=== PATIENT | female | born 1965 ===

== ENCOUNTER 2018-05-13 18:53 | Inpatient (IN) | payer OTHER ==
[~2018-05-13] VITALS: Ht 154.9 cm; Wt 99.8 kg
[2018-05-13] MEDS ORDERED: IV NORMAL SALINE 1000 ML BAG IV ONE (19:00)
[2018-05-13] MEDS ORDERED: [UNRECOGNIZED DRUG - REMARK] (19:04)
[2018-05-13] MEDS ORDERED: [UNRECOGNIZED DRUG - REMARK] (19:04)
[2018-05-13] MEDS ORDERED: [UNRECOGNIZED DRUG - REMARK] (19:04)
[2018-05-13] MEDS ORDERED: [UNRECOGNIZED DRUG - REMARK] (19:04)
[2018-05-13] MEDS ORDERED: [UNRECOGNIZED DRUG - REMARK] (19:04)
--- NOTE | 2018-05-13 19:17 | NUR ---
Pt brought in by rescue ambulance from home with c/o shortness of breath, weakness, and episode of altered mental status witnessed by friend 1 hr prior to arrival per EMS. Pt states she "has not been feeling good all week." Pt is ambulatory, alert oriented x 4. SA02 100% room air.
[2018-05-13 19:53] LABS: BASOPHILS % (AUTO) 0.3 % (0.0-2.0); CREATININE 0.6 mg/dL (0.6-1.3); EOSINOPHILS # (AUTO) 0.2 K/uL (0.0-0.7); HEMATOCRIT 39.3 % (31.2-41.9); HEMOGLOBIN 12.6 g/dL (10.9-14.3); LYMPHOCYTES # (AUTO) 1.7 K/uL (20.0-40.0); LYMPHOCYTES % (AUTO) 20.1 % (20.5-51.5); MEAN CORPUSCULAR HEMOGLOBIN 18.8 uug (24.7-32.8); MEAN CORPUSCULAR HGB CONC 32 g/dL (32.3-35.6); MEAN CORPUSCULAR VOLUME 58.6 fL (75.5-95.3); MONOCYTES # (AUTO) 0.5 K/uL (2.0-10.0); MONOCYTES % (AUTO) 5.4 % (0.0-11.0); NEUTROPHILS # (AUTO) 6.3 K/uL (1.8-8.9); NEUTROPHILS % (AUTO) 72.2 % (38.5-71.5); POTASSIUM 3.7 mmol/L (3.5-5.1); WHITE BLOOD COUNT (AUTO) 8.7 K/uL (3.8-11.8)
[2018-05-13 19:57] LABS: BILIRUBIN,DIRECT 0.1 mg/dL (0.0-0.2); BILIRUBIN,TOTAL 0.4 mg/dL (0.2-1.0); TOTAL PROTEIN, SERUM 7.6 g/dL (6.4-8.2)
--- NOTE | 2018-05-13 20:10 | NUR ---
Paged [facility] for panel call. [facility].
[2018-05-13 20:11] LABS: *BILIRUBIN,URIN NEGATIVE (NEGATIVE); *BLOOD, URINE NEGATIVE (NEGATIVE); *COLOR,URINE YELLOW (YELLOW); *KETONES,URINE NEGATIVE (NEGATIVE); *UROBILINOGEN,URINE 0.2 E.U./dl (NORMAL); LEUKOCYTE ESTERASE ,URINE NEGATIVE (NEGATIVE); NITRITE, URINE NEGATIVE (NEGATIVE); UGLUCOSE NEGATIVE (NEGATIVE)
[2018-05-13 20:13] LABS: *CLARITY,URINE HAZY (CLEAR)
[2018-05-13] MEDS ORDERED: ASPIRIN 81 MG TAB.CHEW ONE (20:13)
[2018-05-13] MEDS ORDERED: ASPIRIN 81 MG TAB.CHEW PO ONE (20:15)
[2018-05-13 20:18] LABS: PLATELET COUNT (AUTO) 169 K/uL (179-408)
[2018-05-13 20:19] LABS: BACTERIA,URINE NONE SEEN /HPF (NONE SEEN); RBC,URINE 0-3 /HPF (0-3); SQUAMOUS EPITHELIAL CELL,UR FEW /HPF (NONE SEEN); WBC,URINE 0-3 /HPF (0-3)
--- NOTE | 2018-05-13 20:44 | NUR ---
Pt. admitted to Telemetry, under care of Dr. Mandujano Diagnosis: TIA vs. Near Syncope Belongs List completed
[2018-05-13 20:55] VITALS: BP 143/61
--- NOTE | 2018-05-13 21:05 | NUR ---
ADMITTED PATIENT IN THE TELE UNIT UNDER THE CARE OF DR. FAJARDO, BELONGING LIST WAS DONE. ALERT ORIENTED, CONTINENT, FAMILY AT BEDSIDE.
[2018-05-13] MEDS ORDERED: MAGNESIUM HYDROXIDE 30 ML LIQUID UDC PO PRN (21:15)
[2018-05-13] MEDS ORDERED: Z GUARD REMEDY PASTE 57 GM TUBE TOP PRN (21:15)
[2018-05-13] MEDS ORDERED: ACETAMINOPHEN 325 MG TABLET PO PRN (21:15)
[2018-05-13] MEDS ORDERED: ONDANSETRON 4 MG/2 ML VIAL IV PRN (21:15)
[2018-05-13] MEDS ORDERED: HYDROCODONE/APAP 5-325MG TABLET PO PRN (21:15)
[2018-05-13] MEDS ORDERED: ZOLPIDEM 5 MG TABLET PO PRN (21:15)
--- NOTE | 2018-05-13 21:58 | NUR ---
PLACE A CALL TO DR. FAJARDO, TO CLARRIFY ORDER OF DRUG PROFILE. NOTIFY MD THAT WE DO URINE DRUG SCREEN IN OUR LAB NOT DRUG PROFILE. DR. FAJARDO OKEYED THE URINE DRUG SCREEN. NOTIFY LABS.
[2018-05-13 22:10] LABS: THYROID STIMULATING HORMONE 1.431 mIU/mL (0.358-3.740)
[2018-05-13 22:28] LABS: *AMPHETAMINE, URINE NEGATIVE (NEGATIVE); *BARBITURATE, URINE NEGATIVE (NEGATIVE); *CANNABINOID, URINE NEGATIVE (NEGATIVE); *COCCAINE, URINE NEGATIVE (NEGATIVE); *OPIATE, URINE NEGATIVE (NEGATIVE); *PHENCYCLIDINE SCREEN,URINE NEGATIVE (NEGATIVE)
[2018-05-14] VITALS: BP 140/54
[2018-05-14] MEDS: BLOOD SUGAR DIAGNOSTIC 1 EACH STRIP VI SCH ×6 (00:09→21:24)
[2018-05-14 04:00] VITALS: BP 126/54
--- NOTE | 2018-05-14 06:06 | NUR ---
PATIENT SLEPT MOST OF THE NIGHT, NO SOB NO CHEST PAIN, TELE MONITOR SINUS RHYTHM 64, PATIENT ALERT ORIENTED, NO ADVERSE CHANGES NOTED. CONT TO MONITOR.
[2018-05-14 06:55] LABS: BASOPHILS % (AUTO) 0.4 % (0.0-2.0); EOSINOPHILS # (AUTO) 0.2 K/uL (0.0-0.7); EOSINOPHILS % (AUTO) 2.9 % (0.0-7.0); HEMATOCRIT 34.9 % (31.2-41.9); HEMOGLOBIN 11.1 g/dL (10.9-14.3); LYMPHOCYTES # (AUTO) 1.6 K/uL (20.0-40.0); LYMPHOCYTES % (AUTO) 23.6 % (20.5-51.5); MEAN CORPUSCULAR HEMOGLOBIN 18.5 uug (24.7-32.8); MEAN CORPUSCULAR HGB CONC 32 g/dL (32.3-35.6); MEAN CORPUSCULAR VOLUME 57.9 fL (75.5-95.3); MONOCYTES # (AUTO) 0.4 K/uL (2.0-10.0); MONOCYTES % (AUTO) 5.9 % (0.0-11.0); NEUTROPHILS # (AUTO) 4.5 K/uL (1.8-8.9); NEUTROPHILS % (AUTO) 67.2 % (38.5-71.5); PLATELET COUNT (AUTO) 164 K/uL (179-408); RED BLOOD CELL COUNT(AUTO) 6.03 MIL/uL (3.63-4.92); WHITE BLOOD COUNT (AUTO) 6.7 K/uL (3.8-11.8)
[2018-05-14 07:14] LABS: CREATININE 0.6 mg/dL (0.6-1.3); MAGNESIUM 1.7 mg/dL (1.8-2.4); PHOSPHOROUS 4.2 mg/dL (2.5-4.9); POTASSIUM 3.7 mmol/L (3.5-5.1)
[2018-05-14] MEDS: ASPIRIN EC 81 MG TABLET.DR PO SCH (08:21)
[2018-05-14] MEDS: AMLODIPINE 5 MG TABLET PO SCH (11:00)
[2018-05-14] MEDS: LISINOPRIL 10 MG TABLET PO SCH ×2 (11:01→21:00)
[2018-05-14] MEDS: METFORMIN HCL 500 MG TABLET PO SCH ×2 (11:04→17:15)
[2018-05-14 11:40] VITALS: BP 135/60
--- NOTE | 2018-05-14 13:45 | NUR ---
PATIENT WENT TO [place] FOR MRI BRAIN AND NECK WITHOUT CONTRAST VIA AMBULANCE
[2018-05-14] MEDS ORDERED: MAGNESIUM OXIDE 400 MG TABLET PO ONE (14:15)
--- NOTE | 2018-05-14 15:00 | NUR ---
BACK FROM MRI STABLE, NO SS OF PAIN OR DISTRESS
[2018-05-14] MEDS ORDERED: CITA20TA19 PO (15:14)
[2018-05-14] MEDS ORDERED: LISI-603 PO (15:15)
[2018-05-14] MEDS ORDERED: METF500S7 PO (15:16)
[2018-05-14] MEDS ORDERED: METF-440 PO (15:18)
[2018-05-14] MEDS ORDERED: AMLO5TAB4 PO (15:19)
[2018-05-14 15:40] VITALS: BP 150/79
--- NOTE | 2018-05-14 17:13 | NUR ---
PATIENT REFUSED SLIDING SCALE FOR BS 146. PATIENT SAID SHE WILL TAKE LATER AT 2100 DOSE. PATIENT ON GLUCOPHAGE PO BID
[2018-05-14 19:24] VITALS: BP 144/71
[2018-05-14] MEDS ORDERED: ATORVASTATIN 40 MG TABLET PO SCH (21:00)
--- NOTE | 2018-05-14 21:15 | NUR ---
Alert, pleasant and cooperative. States feeling much better; anticipates home in AM. Accuchek at HS 144. Pt Diabetic education done. Pt states trying hard to avoid insulin regimen. Expressing determination to do lifestyle changes. Encouraged to verbalize and to feel free to ask questions.
[2018-05-14 23:53] VITALS: BP 131/53
--- NOTE | 2018-05-15 02:00 | NUR ---
Pt has been sleeping. Resp easy and unlabored. Stable sinus rhythm. In no apparent acute distress.
[2018-05-15 03:27] VITALS: BP 151/64
--- NOTE | 2018-05-15 06:50 | NUR ---
Restful night, able to sleep. Pain-free this AM. Hopes to go home. Stable, comfortable night. Spirits good. Pt very appreciative of care provided.
[2018-05-15 06:51] LABS: CREATININE 0.6 mg/dL (0.6-1.3); MAGNESIUM 1.8 mg/dL (1.8-2.4); POTASSIUM 3.9 mmol/L (3.5-5.1)
[2018-05-15] MEDS: BLOOD SUGAR DIAGNOSTIC 1 EACH STRIP VI SCH ×2 (06:53→11:39)
--- NOTE | 2018-05-15 07:15 | NUR ---
IN BED AWAKE ALERT AND ORIENTED X3 NO SS OF PAIN OR DISTRESS SR ON MONITOR. PLAN DC TODAY AWAITING
--- NOTE | 2018-05-15 08:30 | NUR ---
SEEN BY DR LOPEZ WITH DC ORDER
[2018-05-15] MEDS: ASPIRIN EC 81 MG TABLET.DR PO SCH (08:41)
[2018-05-15] MEDS: METFORMIN HCL 500 MG TABLET PO SCH (08:41)
[2018-05-15] MEDS: AMLODIPINE 5 MG TABLET PO SCH (08:44)
[2018-05-15] MEDS: LISINOPRIL 10 MG TABLET PO SCH (08:45)
--- NOTE | 2018-05-15 10:35 | NUR ---
CAROTID US DONE WITH NEGATIVE RESULTS
[2018-05-15 11:25] VITALS: BP 119/64
--- NOTE | 2018-05-15 14:10 | NUR ---
discharge home stable with medication and follow-up instruction given
== END 2018-05-15 14:10 | disposition home or self-care (01) | DRG 47 ==
LOC: ER 18:55 → TELE 20:45 → MED 05-15 11:16
PROVIDERS: ADMIT Family Medicine; ATTEND Internal Medicine
DX: G45.9 Transient cerebral ischemic attack, unspecified (principal); E66.01 Morbid (severe) obesity due to excess calories; F17.210 Nicotine dependence, cigarettes, uncomplicated; R47.02 Dysphasia; F41.0 Panic disorder [episodic paroxysmal anxiety]; Z79.84 Long term (current) use of oral hypoglycemic drugs; Z79.899 Other long term (current) drug therapy; Z68.41 Body mass index [BMI] 40.0-44.9, adult; R29.700 NIHSS score 0; E78.5 Hyperlipidemia, unspecified; G90.8 Other disorders of autonomic nervous system
CPT/HCPCS: 36415; 70030-TC; 70450; 70551; 71045; 80307; 83735; 84100; 84443; 85025; 85651; 85730; 92610; 93005; 93307; 93880; A4663; G0378; J7030